=== PATIENT | female | born 1990 | race Caucasian/White ===

== ENCOUNTER 2017-01-10 23:13 | Emergency (ER) | payer OTHER ==
[~2017-01-10] VITALS: Ht 167.6 cm; Wt 103.0 kg
--- NOTE | 2017-01-10 23:15 | NUR ---
TO BED 4 BIB PARAMEDICS C/O HYPOGLYCEMIA, BS-33 PER EMS REPORT. PT WAS GIVEN D10 TALENT SCOUT. PT AAOX4 NO ACUTE DISTRESS NOTED, RESP EVEN AND UNLABORED. PLACE PT ON CARDAIC MONITORING, CONTINUOUS POX. ER MD AT BEDSIDE TO EVAL PT WITH ORDERS RECEIVED. WILL CARRY OUT ORDERS.
[2017-01-10] MEDS ORDERED: ONDANSETRON 4 MG TAB.RAPDIS ONE (23:29)
[2017-01-10] MEDS ORDERED: ONDANSETRON 4 MG TAB.RAPDIS PO ONE (23:30)
[2017-01-10] MEDS ORDERED: ONDANSETRON HCL/PF 4 MG/2 ML VIAL ONE (23:39)
--- NOTE | 2017-01-11 00:06 | NUR ---
FOOD TRAY PROVIDED TO PT PER ER MD ORDER. PT REFUSING TO EAT AT THIS TIME. PT STATES "I'M NOT HUNGRY AND I DONT LIKE TUNA SANDWICH" ER MD AT [facility] TALKING TO PT REGARIDNG THE IMPORTANCE OF EATING COMPLEX CARBOHYDRATES. PT STILL REFUSE TO EAT.
--- NOTE | 2017-01-11 00:30 | NUR ---
PT S/O AT BEDSIDE.
[2017-01-11] MEDS ORDERED: ONDANSETRON HCL/PF 4 MG/2 ML VIAL IM ONE ×3 (02:00→02:30)
[2017-01-11] MEDS ORDERED: ONDANSETRON HCL/PF 4 MG/2 ML VIAL ONE (02:24)
--- NOTE | 2017-01-11 02:33 | NUR ---
PT REFUSE NAUSEA MEDICINE. PT DENIES NAUSEA AT THIS TIME. PT FAMILY MEMBERS AT BEDSIDE.
--- NOTE | 2017-01-11 02:41 | NUR ---
PT EATING AT THIS TIME, NO N/V NOTED.
--- NOTE | 2017-01-11 03:17 | NUR ---
ER MD AT BEDSIDE TALKING TO PT. PENDING DISPOSITION.
[2017-01-11 03:24] VITALS: BP 127/69
== END 2017-01-11 03:37 | disposition home or self-care (01) ==
LOC: ER 23:15
DX: E11.649 Type 2 diabetes mellitus with hypoglycemia without coma (principal)
CPT/HCPCS: 82962 ×3; 96372; 99283; A4606; J2405 ×2; Q0162; Z7610